=== PATIENT | male | born 2000 | race African-American/Black ===

== ENCOUNTER 2019-05-13 07:39 | Day surgery (SDC) | payer MEDICAID ==
[~2019-05-13 07:39] MED LIST: Lactated Ringers 1,000 ML IV SCH; Sodium Chloride 0.9% 10 ML Syringe FLUSH PRN
[2019-05-13] MEDS ORDERED: Ondansetron 4 MG/2 ML SDV IVPUSH ONE (07:40)
[2019-05-13] MEDS ORDERED: fentaNYL 100 MCG/2 ML SDV IV ONE (07:40)
[2019-05-13] MEDS ORDERED: Dexmedetomidine 200 MCG/2 ML SDV IV ONE (07:40)
[2019-05-13] MEDS ORDERED: Glycopyrrolate 0.2 MG/ML 5 ML MDV IV ONE (07:40)
[2019-05-13] MEDS ORDERED: Ketorolac 30 MG/ML SDV IVPUSH ONE (07:40)
[2019-05-13] MEDS ORDERED: Lactated Ringers 1,000 ML IV ONE (07:40)
[2019-05-13] MEDS ORDERED: Midazolam 1 MG/ML 2 ML SDV IV ONE (07:40)
[2019-05-13] MEDS ORDERED: Propofol 200 MG/20 ML SDV IV ONE (07:40)
[2019-05-13] MEDS ORDERED: Bupivacaine 0.5%/EPINEPHrine 1:200,000 50 ML MDV ONE (09:27)
--- NOTE | 2019-05-25 17:07 | PCM.OPNOTE ---
- General Post-Op/Procedure Note Date of Surgery/Procedure: 05/13/19 Operative Procedure(s): left knee arthroscopy, partial lateral menisectomy Pre Op Diagnosis: left lateral meniscus tear Post-Op Diagnosis: Same Anesthesia Technique: General ET Tube Primary Surgeon: Otilio Hopkins EBSmooth in mLs: 25 Complications: None Condition: Good
--- NOTE | 2019-05-25 17:08 | PCM.HPR ---
H & P Addendum review - H & P Addendum Review Date of Original H & P: 05/11/19 Date Reviewed: 05/13/19 Time Reviewed: 07:30 Patient was Examined: No Changes
--- NOTE | 2019-05-25 18:08 | OR ---
DATE OF OPERATION: 05/13/2019 SURGEON: Otilio Hopkins DO PREOPERATIVE DIAGNOSIS: Left knee bucket-handle lateral meniscus tear. POSTOPERATIVE DIAGNOSIS: Left knee bucket-handle lateral meniscus tear. PROCEDURE: Left knee arthroscopy with partial lateral meniscectomy. ANESTHESIA: General endotracheal intubation. FLUID: Lactated Ringer solution. ESTIMATED BLOOD LOSS: 25 mL. COMPLICATIONS: None. SPECIMEN: None. DISCHARGE DISPOSITION: Stable to PACU. HISTORY AND INDICATIONS FOR THE PROCEDURE: The patient was seen preoperatively by Vanessa Hernandze. He was found to have the above-mentioned diagnosis on MRI. Risks and goals of the procedure were explained to the patient and informed consent was obtained. DETAILS OF PROCEDURE: The patient was seen preoperatively by myself and the Anesthesia staff in the preoperative holding area where the operative site was marked. He was brought to the operative suite by Anesthesia staff where general anesthesia was administered. The right lower extremity was placed into a stirrup. The left lower extremity was placed in slight flexion with good padding and all extremities found to be well padded. The left lower extremity had a tourniquet placed on the thigh. The left lower extremity was then prepped and draped in a sterile manner. Time-out was called identifying the correct patient, correct procedure, the correct site and the antibiotics were begun within appropriate period of time. The left lower extremity was exsanguinated. Tourniquet was raised to 250 mmHg and taken down at closure at 19 minutes. The medial lateral portals were made. The lateral portal was entered with a trocar and then the camera was entered. This showed no patellofemoral arthritis. No plica was seen in the medial or lateral gutters. No osteophytes were seen. No loose bodies were seen. The medial meniscus was found to be in good repair. ACL was found to be in good repair. The medial portal was then opened. I did remove a portion of the infrapatellar fat pad. I then used a probe to probe the lateral meniscus. The lateral meniscus posteriorly had flipped into the notch. I then used a 12 blade to cut the base root of the meniscus and then used a shaver to remove the remainder of the torn meniscus. This was not a red zone, so it could not have been repaired. After completing our goals, I then removed my instruments from the knee and then closed with 3-0 nylon interrupted horizontal mattress sutures followed by Betadine-soaked Adaptic, fluffs, and an Yo wrap. The tourniquet was let down at 19 minutes. The patient was allowed to awaken from general anesthesia and taken to the PACU in stable condition. /[id number] BS/MODL
== END 2019-05-13 12:05 | disposition home or self-care (01) ==
LOC: FB.SDS 07:39
PROVIDERS: ATTEND Orthopaedic Surgery
DX: S83.252A Bucket-handle tear of lateral meniscus, current injury, left knee, initial encounter (principal); F17.210 Nicotine dependence, cigarettes, uncomplicated; X58.XXXA Exposure to other specified factors, initial encounter
CPT/HCPCS: 94150; J0690; J1885; J2250; J2405; J2704; J3010; J3490; J7050; J7120